=== PATIENT | male | born 1995 | race Caucasian/White ===

== ENCOUNTER → 2017-09-24 | Outpatient (REF) | payer BC | LOC: M SFHCLERA 14:04 | PROVIDERS: ATTEND Nurse Practitioner Family | DX: J02.9 Acute pharyngitis, unspecified (principal) ==

== ENCOUNTER → 2018-10-06 | Outpatient (REF) | payer OTHER ==
[2018-10-06 22:48] LABS: CHLAMYDIA DNA AMPLIFICATION NEGATIVE (NEGATIVE); GC DNA AMPLIFICATION NEGATIVE (NEGATIVE)
== END ==
LOC: M SFHCLERA 14:50
DX: Z20.2 Contact with and (suspected) exposure to infections with a predominantly sexual mode of transmission (principal); N50.89 Other specified disorders of the male genital organs
CPT/HCPCS: 87086

== ENCOUNTER → 2018-12-02 | Outpatient (CLI) | payer OTHER ==
[~2018-12-02] MED LIST: ACET1TAB55 PO; ROBA750T4 PO
--- NOTE | 2018-12-03 14:09 | REP ---
Clinical: Displaced fracture. Technique: Axial noncontrast images through the hand with coronal and sagittal re-formations. Findings: There is a minimally displaced comminuted fracture along the lateral aspect at the base of the fifth metacarpal bone. Fracture components involve the articular surface of the metacarpal bone. Multiple fracture fragments are identified with approximately 5 mm of maximal lateral displacement of the largest fracture fragment. Moderate surrounding soft tissue swelling is appreciated. The musculotendinous structures appear essentially intact and maintained based on current noncontrast CT. Remainder of the osseous structures within the hand appear intact and normal. Impression: Comminuted intra-articular fracture at the base of the fifth metacarpal bone with approximately 5 mm maximal lateral displacement to the largest fracture fragment. Electronically Signed by Milan Varma MD 12/03/2018 02:00 P
== END ==
LOC: M RAD 16:26
PROVIDERS: ATTEND Orthopaedic Surgery Sports Medicine
DX: S62.316A Displaced fracture of base of fifth metacarpal bone, right hand, initial encounter for closed fracture (principal); X58.XXXA Exposure to other specified factors, initial encounter; Y92.9 Unspecified place or not applicable

== ENCOUNTER 2019-05-08 07:10 | Emergency (ER) | payer OTHER ==
[~2019-05-08] VITALS: Ht 188 cm; Wt 74.8 kg
[2019-05-08] MEDS ORDERED: CEPHALEXIN 500 MG CAP PO ONE (08:00)
[2019-05-08] MEDS ORDERED: BACITRACIN OINT 30GM TOP ONE (08:00)
--- NOTE | 2019-05-08 08:03 | REP ---
Right elbow for views: There is soft tissue edema posteriorly. Mineralization and joint spaces are normal. There is no fracture or dislocation. There are no calcifications or foreign bodies. No joint effusion. Impression: Soft tissue edema posteriorly. No fracture. Electronically Signed by Palmer Stone MD 05/08/2019 07:55 A
[2019-05-08 08:23] VITALS: BP 131/76
[2019-05-08] MEDS ORDERED: KEFL500C17 PO (08:26)
== END 2019-05-08 08:30 | disposition home or self-care (01) ==
LOC: M ED 07:10
DX: S51.811A Laceration without foreign body of right forearm, initial encounter (principal); S50.311A Abrasion of right elbow, initial encounter; S50.811A Abrasion of right forearm, initial encounter; W22.8XXA Striking against or struck by other objects, initial encounter; Y92.830 Public park as the place of occurrence of the external cause; Y93.67 Activity, basketball; M71.521 Other bursitis, not elsewhere classified, right elbow; F17.210 Nicotine dependence, cigarettes, uncomplicated

== ENCOUNTER → 2020-11-09 | Outpatient (REF) | payer OTHER ==
[~2020-11-09] MED LIST changes: +KEFL500C17 PO
== END ==
LOC: M LAB REF 14:16
PROVIDERS: ATTEND Physician Assistant
DX: Z11.59 Encounter for screening for other viral diseases (principal)

== ENCOUNTER 2021-07-02 12:46 | Emergency (ER) | payer OTHER ==
[~2021-07-02] VITALS: Ht 185.4 cm; Wt 86.4 kg
[2021-07-02] MEDS ORDERED: FLUORESCEIN OPHTH 1 MG STRIP OU ONE (13:40)
[2021-07-02] MEDS ORDERED: TETRACAINE 0.5% OPHTH SOLN 4ML OU ONE (13:40)
[2021-07-02 14:47] VITALS: BP 133/83
== END 2021-07-02 14:57 | disposition home or self-care (01) ==
LOC: M ED 12:46
DX: H57.9 Unspecified disorder of eye and adnexa (principal); Z77.098 Contact with and (suspected) exposure to other hazardous, chiefly nonmedicinal, chemicals